=== PATIENT | male | born 1965 | race Caucasian/White ===

== ENCOUNTER 2018-12-22 14:27 | Emergency (ER) | payer SELFPAY ==
[2018-12-22 15:11] LABS: Absolute Lymphocytes (CBC) 1.2 K/uL (0.7-4.9); Basophils % 0.1 % (0-1.3); Eosinophils % 0.4 % (0-4.4); Hematocrit 37.9 % (39.6-49.0); Lymphocytes % 7.1 % (15.3-44.8); MPV 8.3 fL (7.6-11.3); Monocytes % 4.6 % (3.3-12.3); RBC Red Blood Cell Count 4.78 M/uL (4.33-5.43)
[2018-12-22 15:22] LABS: Potassium 3.2 mmol/L (3.5-5.1)
[2018-12-22] MEDS ORDERED: NA CHLORIDE 0.9% 1,000 ML ONE (15:23)
--- NOTE | 2018-12-22 16:17 | RAD REPORT ---
EXAM DESCRIPTION: CT - Chest Abdomen Pelvis W Cont - 12/22/2018 3:48 pm CLINICAL HISTORY: Chest and abdominal pain. Left inguinal mass COMPARISON: none TECHNIQUE: Computed axial tomography of the chest, abdomen and pelvis was obtained. 100 cc Isovue-30 0 was administered intravenously. Oral contrast was not requested. This limits evaluation of bowel. All CT scans are performed using dose optimization technique as appropriate and may include automated exposure control or mA/KV adjustment according to patient size. FINDINGS: The lungs are clear. No mediastinal or hilar lymphadenopathy Multiple left axillary lymph nodes. The largest measures 3 centimeters in short axis. A pleural effusion is not present. No pericardial effusion Fatty liver. Nodular contour may indicate cirrhosis. Calcification gallbladder wall or. Mild dilatati on of common bile duct Spleen, pancreas, adrenals and kidneys appear unremarkable Para-aortic/caval, retrocrural, mesenteric, iliac and left inguinal lymphadenopathy. Largest lymph no de measures 3.4 centimeter short axis IMPRESSION: Left axillary, abdominal, pelvic and left inguinal lymphadenopathy suspicious for lympho ma Mild dilatation of the common bile duct
[2018-12-22 16:18] LABS: Protime INR 1.41
[2018-12-22 16:42] LABS: ALT/SGPT 83 U/L (12-78); AST/SGOT 132 U/L (15-37); Alkaline Phosphatase 1151 U/L (45-117); Bilirubin Direct 0.4 mg/dL (0-0.2); Bilirubin Total 0.5 mg/dL (0.2-1.0); Magnesium 2.3 mg/dL (1.8-2.4); NT PRO-BNP 2015 pg/mL (<125); Troponin (Emerg Dept Use Only) < 0.02 ng/mL (0.0-0.045)
[2018-12-22 17:25] LABS: Anisocytosis 1+; Blood Morphology Comment NOTED (NOT SEEN); Platelet Estimate INCR
--- NOTE | 2018-12-22 17:35 | RAD REPORT ---
EXAM DESCRIPTION: Piyush Single View12/22/2018 3:16 pm CLINICAL HISTORY: Chest pain COMPARISON: none FINDINGS: The lungs appear clear of acute infiltrate. The heart is normal size IMPRESSION: No acute abnormalities displayed
--- NOTE | 2018-12-22 17:58 | ER ---
Nurse's Notes [facility] Name: Gregor Diaz Age: 52 yrs Sex: Male : 1965 Arrival Date: 12/22/2018 Time: 14:30 Bed 7 Private MD: Diagnosis: Acute Lymphoma (new diagnosis) Presentation: 12/22 14:33 Presenting complaint: Patient states: i felt pain on my L groin area couple of weeks hj ago and its getting worse and it felt a big lump in the area; reports N/V; denies fever and chills;. Transition of care: patient was not received from another setting of care. Onset of symptoms was December 22, 2018. Risk Assessment: Do you want to hurt yourself or someone else? Patient reports no desire to harm self or others. Initial Sepsis Screen: Does the patient meet any 2 criteria? No. Patient's initial sepsis screen is negative. Does the patient have a suspected source of infection? No. Patient's initial sepsis screen is negative. Care prior to arrival: None. 14:33 Method Of Arrival: Ambulatory 14:33 Acuity: LILA 3 hj Historical: - Allergies: 14:35 No Known Allergies; hj - PMHx: 14:35 None; hj - PSHx: 14:35 Appendectomy; hj - Immunization history:: Adult Immunizations up to date. - Social history:: Smoking status: Patient uses tobacco products, smokes more than three packs cigarettes per day. Patient/guardian denies using alcohol, street drugs. - Ebola Screening: : Patient negative for fever greater than or equal to 101.5 degrees Fahrenheit, and additional compatible Ebola Virus Disease symptoms Patient denies exposure to infectious person Patient denies travel to an Ebola-affected area in the 21 days before illness onset No symptoms or risks identified at this time. Screenin:14 Abuse screen: Denies threats or abuse. Denies injuries from another. Nutritional ch screening: No deficits noted. Tuberculosis screening: No symptoms or risk factors identified. Fall Risk None identified. Assessment: 15:14 General: Appears in no apparent distress. uncomfortable, unkempt, Behavior is restless. ch Pain: Complains of pain in left femoral area, generalized. Neuro: No deficits noted. Cardiovascular: Heart tones S1 S2 present Capillary refill is > 3 seconds in bilateral fingers toes Clubbing of nail beds is absent Pulses are all present. Edema is 2+ to left midcalf, left ankle, left foot, right midcalf, right ankle and right foot pitting to left midcalf, left ankle, left foot, right midcalf, right ankle and right foot. Respiratory: Airway is patent Respiratory effort is even, unlabored, Breath sounds are clear bilaterally. GI: Bowel sounds present X 4 quads. Abd is soft and non tender X 4 quads. pt has a approx 8cm lump to L pelvic / groin area. firm, oblong shape, tracking down to area between groin and leg. : Genitalia appear normal. Derm: Skin is red, pt upper extremities has red, raw, cracked and slightly oozing skin, worse distal, improving as moves up body. bright red, swollen and painful. pt skin is dry, flanking, mucous membranes dry, mouth sputum is thick and white. pt smells of body odor and is smelly. pt R foot is extremely dry, cracking heel. skin is tenting, poor turgor. fragle. pt reports he has lots of hanging loose skin as he has lost at least 35 lbs in the past 6 months. Musculoskeletal: Vital Signs: 14:35 BP 145 / 87; Pulse 72; Resp 18; Temp 98.2(O); Pulse Ox 98% on R/A; Weight 111.13 kg; hj Height 6 ft. 2 in. (187.96 cm); Pain 10/10; 16:41 BP 141 / 77; Pulse 73; Resp 16; Pulse Ox 100% on R/A; aj 14:35 Body Mass Index 31.46 (111.13 kg, 187.96 cm) ED Course: 14:30 Patient arrived in ED. as 14:35 Triage completed. hj 14:35 Arm band placed on left wrist. hj 14:45 Gio Mendez PA is PHCP. jr8 14:45 Pablo Grigsby MD is Attending Physician. jr8 14:51 Carmella Whitman, LEONID is Primary Nurse. aj 15:09 Inserted saline lock: 20 gauge in right antecubital area, using aseptic technique. aj Blood collected. 15:14 Patient has correct armband on for positive identification. Placed in gown. Bed in low ch position. Call light in reach. Side rails up X 1. Adult w/ patient. quality assurance monitor final on. Pulse ox on. NIBP on. Warm blanket given. 15:14 No provider procedures requiring assistance completed. 15:16 X-ray completed. Portable x-ray completed in exam room. Patient tolerated procedure 1 well. 15:17 XRAY Chest (1 view) In Process Unspecified. EDMS 15:25 EKG done, by hospital technician. reviewed by Gio RUIZ. dt2 15:49 CT Chest, Abdomen, Pelvis - W/Contrast In Process Unspecified. EDMS 18:59 Patient transferred, IV remains in place. aj Administered Medications: 15:09 Drug: NS 0.9% 1000 ml Route: IV; Rate: 1000 ml; Site: right antecubital; aj 19:01 Follow up: IV Status: Completed infusion aj 19:01 Follow up: Response: No adverse reaction; IV Status: Completed infusion; IV Intake: aj 1000ml Intake: 19:01 IV: 1000ml; Total: 1000ml. aj Outcome: 17:57 ER care complete, transfer ordered by MD. gandhi 18:59 Transferred by ground EMS to [facility], Transfer form completed. aj X-rays sent w/ patient. 18:59 Condition: stable 18:59 Instructed on the need for transfer. 19:02 Patient left the ED. aj Signatures: Dispatcher [employer] Page Kulkarni, RN Carmella Lerma ch RN Kelly Garduno 1 Christa Dugan Josh, PA PA jr8 Joaquin, Henry RN Dinorah Madison dt2
--- NOTE | 2018-12-22 17:58 | EDPHYS ---
Physician Documentation [facility] Name: Gregor Diaz Age: 52 yrs Sex: Male : 1965 Arrival Date: 12/22/2018 Time: 14:30 Bed 7 Private MD: ED Physician Pablo Grigsby HPI: 12/22 16:11 This 52 yrs old Male presents to ER via Ambulatory with complaints of Groin jr8 Pain. 16:11 Patient stated that he has had large weight loss over the past 6 months with skin jr8 peeling of skin. Feels very dry and stated that he cannot sweat right and had mouth sores and dryness. Stated that he is becoming fatigued and now had large mass to left inguinal region . Onset: The symptoms/episode began/occurred gradually, 6 month(s) ago. Severity of symptoms: At their worst the symptoms were moderate in the emergency department the symptoms are unchanged. The patient has not experienced similar symptoms in the past. The patient has not recently seen a physician. Historical: - Allergies: 14:35 No Known Allergies; hj - PMHx: 14:35 None; hj - PSHx: 14:35 Appendectomy; hj - Immunization history:: Adult Immunizations up to date. - Social history:: Smoking status: Patient uses tobacco products, smokes more than three packs cigarettes per day. Patient/guardian denies using alcohol, street drugs. - Ebola Screening: : Patient negative for fever greater than or equal to 101.5 degrees Fahrenheit, and additional compatible Ebola Virus Disease symptoms Patient denies exposure to infectious person Patient denies travel to an Ebola-affected area in the 21 days before illness onset No symptoms or risks identified at this time. ROS: 16:11 Eyes: Negative for injury, pain, redness, and discharge, ENT: Negative for injury, jr8 pain, and discharge, Neck: Negative for injury, pain, and swelling, Cardiovascular: Negative for chest pain, palpitations, and edema, Respiratory: Negative for shortness of breath, cough, wheezing, and pleuritic chest pain, Abdomen/GI: Negative for abdominal pain, nausea, vomiting, diarrhea, and constipation, Back: Negative for injury and pain, MS/Extremity: Negative for injury and deformity, Neuro: Negative for headache, weakness, numbness, tingling, and seizure. 16:11 Constitutional: Positive for fatigue, malaise, poor PO intake, weight loss. 16:11 Skin: Positive for erythema, lesions, rash, swelling. 16:11 Hematologic/Lymphatic: Positive for swollen nodes, tender nodes. Exam: 16:11 Head/Face: Normocephalic, atraumatic. jr8 16:11 Cardiovascular: Regular rate and rhythm with a normal S1 and S2. No gallops, murmurs, or rubs. Normal PMI, no JVD. No pulse deficits 2+ pitting edema present to legs. 1+ pitting edema to hands and arms. Respiratory: Lungs have equal breath sounds bilaterally, clear to auscultation and percussion. No rales, rhonchi or wheezes noted. No increased work of breathing, no retractions or nasal flaring. Abdomen/GI: Soft, non-tender, with normal bowel sounds. No distension or tympany. No guarding or rebound. No evidence of tenderness throughout. Large left inguinal lymphadenopathy present. Mild nontender nodes also on right inguinal region Back: No spinal tenderness. No costovertebral tenderness. Full range of motion. 16:11 Neuro: Awake and alert, GCS 15, oriented to person, place, time, and situation. Cranial nerves II-XII grossly intact. Motor strength 5/5 in all extremities. Sensory grossly intact. Cerebellar exam normal. Normal gait. 16:11 Eyes: Periorbital structures: appear normal, Pupils: equal, round, and reactive to light and accomodation, Extraocular movements: intact throughout, Conjunctiva: normal, Corneas: are normal, Sclera: no appreciated abnormality, Anterior chamber: normal, Lids and lashes: ectropion bilaterally . 16:11 ENT: External ear(s): are unremarkable, Ear canal(s): are normal, TM's: are normal, Nose: is normal, no abrasion, no abscess, no bleeding, no clotted blood, no contusion, no drainage, no edema, no erythema, no laceration, no septal hematoma, no swelling, Mouth: Lips: dry, cracked, Oral mucosa: pink and intact, dry, noted to have ulceration(s), Gums: normal with healthy appearance, Tongue: displays fissures, is swollen, Posterior pharynx: Airway: patent, Tonsils: are normal in appearance, Uvula: midline, swelling, is not appreciated, erythema, that is mild. 16:11 Chest/axilla: Lymph nodes: Axillary nodes are palpable, on the left. 16:11 Skin: desquamation of the palms noted with erythema. Peeling red rash on arms noted. Vital Signs: 14:35 BP 145 / 87; Pulse 72; Resp 18; Temp 98.2(O); Pulse Ox 98% on R/A; Weight 111.13 kg; hj Height 6 ft. 2 in. (187.96 cm); Pain 10/10; 16:41 BP 141 / 77; Pulse 73; Resp 16; Pulse Ox 100% on R/A; aj 14:35 Body Mass Index 31.46 (111.13 kg, 187.96 cm) hj MDM: 14:45 Patient medically screened. 8 17:54 Data reviewed: vital signs, nurses notes, lab test result(s), EKG, radiologic studies, [facility] CT scan, plain films. Data interpreted: Pulse oximetry: on room air is 100 %. Interpretation: normal. Counseling: I had a detailed discussion with the patient and/or guardian regarding: the historical points, exam findings, and any diagnostic results supporting the discharge/admit diagnosis, lab results, radiology results, the need to transfer to another facility, [facility] does not immediately have the required specialist. ED course: [facility] contacted for assistance with new onset lymphoma. Accepted transfer . 12/22 14:45 Order name: Basic Metabolic Panel; Complete Time: 15:26 [facility] 12/22 14:45 Order name: CBC with Diff; Complete Time: 17:37 [facility] 12/22 14:45 Order name: Creatinine for Radiology; Complete Time: 15:26 12/22 15:02 Order name: LFT's 12/22 15:02 Order name: Magnesium 12/22 15:02 Order name: NT PRO-BNP 12/22 15:02 Order name: PT-INR 12/22 15:02 Order name: Troponin (emerg Dept Use Only) 12/22 15:02 Order name: ESR 12/22 15:02 Order name: CRP 12/22 15:02 Order name: T4 Free 12/22 15:02 Order name: TSH; Complete Time: 17:15 12/22 15:03 Order name: Liver (Hepatic) Function; Complete Time: 17:15 EDMS 12/22 15:03 Order name: Magnesium; Complete Time: 17:15 EDMS 12/22 14:45 Order name: IV Saline Lock; Complete Time: 15:34 12/22 14:45 Order name: Labs collected and sent; Complete Time: 15:34 12/22 15:02 Order name: XRAY Chest (1 view); Complete Time: 17:37 12/22 15:02 Order name: EKG; Complete Time: 15:04 12/22 15:03 Order name: NT PRO-BNP; Complete Time: 17:15 EDMS 12/22 15:03 Order name: Protime (+INR); Complete Time: 16:28 MS 12/22 15:03 Order name: Troponin (Emerg Dept Use Only); Complete Time: 17:15 EDMS 12/22 15:03 Order name: Sedimentation Rate, Westergren; Complete Time: 17:15 MS 12/22 15:03 Order name: C-Reactive Protein; Complete Time: 17:15 MS 12/22 15:03 Order name: T4 Free; Complete Time: 17:15 MS 12/22 15:11 Order name: Lactate; Complete Time: 16:10 12/22 15:12 Order name: Blood Culture Adult (2) 12/22 15:13 Order name: Manual Differential; Complete Time: 17:37 EDMS 12/22 15:26 Order name: CT Chest, Abdomen, Pelvis - W/Contrast; Complete Time: 16:28 12/22 15:02 Order name: Cardiac monitoring; Complete Time: 15:34 12/22 15:02 Order name: EKG - Nurse/Tech; Complete Time: 15:34 12/22 15:02 Order name: O2 Per Protocol; Complete Time: 15:34 12/22 15:02 Order name: O2 Sat Monitoring; Complete Time: 15:34 Administered Medications: 15:09 Drug: NS 0.9% 1000 ml Route: IV; Rate: 1000 ml; Site: right antecubital; aj 19:01 Follow up: IV Status: Completed infusion aj 19:01 Follow up: Response: No adverse reaction; IV Status: Completed infusion; IV Intake: aj 1000ml Disposition: 12/23 13:08 Co-signature as Attending Physician, Pablo Grigsby MD Available for consultation at ps1 all times. . Disposition: 12/22/18 17:57 Transfer ordered to [facility]. Diagnosis is Acute Lymphoma (new diagnosis). - Reason for transfer: Higher level of care. - Accepting physician is [facility]. - Condition is Fair. - Problem is new. - Symptoms are unchanged. Signatures: Dispatcher [employer] Page Kulkarni, RN RN Carmella Rocha RN RN Gio Silverio PA PA jr8 Jacinto Lemus RN RN Pablo Mercado MD MD ps1 Corrections: (The following items were deleted from the chart) 12/22 19:02 17:57 12/22/2018 17:57 Transfer ordered to [facility]. Diagnosis is aj Acute Lymphoma (new diagnosis). Reason for transfer: Higher level of care. Accepting physician is [facility]. Condition is Fair. Problem is new. Symptoms are unchanged. jr8
--- NOTE | 2018-12-22 19:41 | EKG ---
Test Date: 2018-12-22 Test Time: 15:16:47 [employer]: JUAN MEASUREMENT RESULTS: Intervals: Rate: 78 ME: 148 QRSD: 98 QT: 410 QTc: 467 Helix: P: 64 ME: 148 QRS: 39 T: 53 INTERPRETIVE STATEMENTS: Normal sinus rhythm Normal ECG No previous ECG available for comparison Electronically Signed On 12-22-18 19:40:19 CDT by Last Mariee
== END 2018-12-22 19:02 | disposition short-term general hospital (02) ==
LOC: ER 14:27
DX: C85.95 Non-Hodgkin lymphoma, unspecified, lymph nodes of inguinal region and lower limb (principal); F17.210 Nicotine dependence, cigarettes, uncomplicated
CPT/HCPCS: 36415; 71045; 71260; 74177; 80048; 80076; 83605; 83735; 83880; 84439; 84443; 84484; 85025; 85610; 85652; 86140; 87040; 93005; 96360; 96361; 99285; J7030; Q9967